=== PATIENT | female | born 1945 | race Caucasian/White ===

== ENCOUNTER 2021-03-08 10:38 | Observation (INO) | payer OTHER ==
--- OUTSIDE RECORDS SUMMARY | 2021-03-08 10:41 | XMS REPORT | Continuity of Care Document ---
:1945 Author Organization [facility] t Address [address] [place] [address] Care Team Providers Name Role Phone Tresa Morris MD Attending Clinician Alexandra TRUJILLO Attending Clinician Tino BRAVO, K.H. Attending Clinician 2, Lab Attending Clinician Unavailable Doctor Unassigned, Name Attending Clinician Unavailable Irma BRAVO Admitting Clinician Problems This patient has no known problems. Allergies, Adverse Reactions, Alerts This patient has no known allergies or adverse reactions. Medications This patient has no known medications. Procedures This patient has no known procedures. Encounters Start End Encounter Admission Attending Care Care Encounter Source Date/Time Date/Time Type Type Clinicians Facility Department ID 2021-03-06 2021-03-07 [facility] Stacy Morrisnaif [facility] [id number] 19:57:00 00:58:00 Encounter Chrystal Morris [place] [id number] [place] [id number] [place] [id number] 2021-03-07 2021-03-07 Telephone Tino [facility] [id number] 00:00:00 00:00:00 Send[place] Rhonda Glover [id number] [place] [id number] [facility] [phone] [address] 2020-11-22 2020-11-22 Telephone [facility] [id number] 00:00:00 00:00:00 Balwinder Glover [id number] [place] [id number] Profess[place] [phone] nal 059 [facility] 2020-11-14 2020-11-14 Boiler Water Tester 2, Adc Lab [facility] [id number] 09:38:37 09:53:37 Visit [place] [id number] [place] [id number] Professio [phone] formerly [facility] 353 [facility] 2020-09-13 2020-09-13 [facility] [id number] 00:00:00 00:00:00 Balwinder Glover [id number] [place] [id number] Profess[facility] [phone] [facility] 059 [facility] 2020-09-10 2020-09-10 Orders Doctor CHING [id number] 00:00:00 00:00:00 Only Unassigned, MIKEL [id number] Bruce [facility] [id number] [facility] 2020-09-06 2020-09-06 Office [facility] [id number] 10:12:42 11:36:12 Visit Balwinder Glover [id number] [place] [id number] [facility] [phone] [address] Results This patient has no known results.
[2021-03-08 11:58] LABS: Arterial Blood Carboxyhemoglob 2.2 % (0-1.5); Blood Gas Oxyhemoglobin 91.1 % (94-97)
--- NOTE | 2021-03-08 12:24 | RAD REPORT ---
EXAM DESCRIPTION: [place] Single View03/08/2021 11:45 am CLINICAL HISTORY: Cough COMPARISON: 2017 FINDINGS: 3.4 centimeter opacity mid to lower left lung. Main lungs appear clear of acute infiltrate. Heart is normal size. Lungs are hyperaerated IMPRESSION: 3.4 centimeter opacity mid to lower left lung may represent pneumonia or mass. CT chest is recommended
[2021-03-08 12:34] LABS: Urine Blood Negative (Negative); Urine Glucose Negative (Negative); Urine Protein Negative (Negative)
--- NOTE | 2021-03-08 12:35 | ER ---
Nurse's Notes [facility] Name: Sarah Wu Age: 75 yrs Sex: Female : 1945 Arrival Date: 03/08/2021 Time: 10:[address] Private MD: Diagnosis: Pneumonia, unspecified organism;COPD/ Chronic obstructive pulmonary disease with (acute) exacerbation;Tobacco abuse counseling;Tobacco use;Hypoxemia Presentation: 03/08 10:44 Chief complaint: Patient states: about 5 or 6 days ago i started feeling bad. i got tw2 tested twice for Covid twice and both were negative at [facility], they said i got bronchitis. i called dr. cantor and told him what they found and he said come into my office today. so i got to his office and he sent me here. Coronavirus screen: congestion, cough unrelated to allergies, fever, runny nose, Client presents with at least one sign or symptom that may indicate coronavirus-19. Standard/surgical mask placed on the client. Provider contacted for isolation considerations. Ebola Screen: Patient denies travel to an Ebola-affected area in the 21 days before illness onset. Initial Sepsis Screen: Does the patient meet any 2 criteria? No. Patient's initial sepsis screen is negative. Does the patient have a suspected source of infection? No. Patient's initial sepsis screen is negative. Risk Assessment: Do you want to hurt yourself or someone else? Patient reports no desire to harm self or others. Onset of symptoms was March 08, 2021. 10:44 Method Of Arrival: Wheelchair tw2 10:44 Acuity: PATSY 3 tw2 Triage Assessment: 10:49 General: Appears in no apparent distress. slender, well groomed, Behavior is calm, tw2 cooperative, appropriate for age. Pain: Denies pain. Respiratory: Reports shortness of breath at rest on exertion. Historical: - Allergies: 10:49 Latex, Natural Rubber; tw2 10:49 amlodipine; tw2 - Home Meds: 10:49 metformin 500 mg Oral tab 1 tab 2 times per day [Active]; Glipizide Oral [Active]; tw2 metoprolol tartrate 25 mg Oral tab 1 tab once daily [Active]; Lisinopril Oral [Active]; rosuvastatin oral [Active]; aspirin 81 mg Oral chew 1 tab once daily [Active]; - PMHx: 10:49 Diabetes mellitus; hypertension; hyperlipidemia; breast cancer; heart attack; tw2 - PSHx: 10:49 Cholecystectomy; lymphectomy, right breast; cardiac stents; tw2 - Immunization history:: Client reports receiving the 2nd dose of the Covid vaccine. - Social history:: Smoking status: Patient reports the use of cigarette tobacco products, smokes one pack cigarettes per day. - Family history:: not pertinent. Screenin:53 Abuse screen: Denies threats or abuse. Denies injuries from another. Nutritional zb screening: No deficits noted. Tuberculosis screening: No symptoms or risk factors identified. Fall Risk None identified. Assessment: 12:51 General: Appears in no apparent distress. comfortable, Behavior is cooperative, Reports zb fever for 2-3 days, feeling ill for > 3 days, fatigue for 2-3 days. Pain: Denies pain. Neuro: Level of Consciousness is awake, alert, obeys commands, Oriented to person, place, time, situation. Cardiovascular: Capillary refill < 3 seconds in bilateral Patient's skin is warm and dry. Respiratory: Reports shortness of breath at rest cough that is productive, hacking, persistent Airway is patent Respiratory effort is even, unlabored, Respiratory pattern is regular, symmetrical, Breath sounds are diminished bilaterally. the patient has mild shortness of breath. GI: Abdomen is flat, Bowel sounds present X 4 quads. Reports diarrhea. Derm: Skin is intact, is healthy with good turgor, Skin is normal, Skin temperature is warm. Musculoskeletal: Range of motion: intact in all extremities. 13:45 Reassessment: Patient appears in no apparent distress at this time. Patient and/or zb family updated on plan of care and expected duration. Pain level reassessed. Patient is alert, oriented x 3, equal unlabored respirations, skin warm/dry/pink. 14:50 Reassessment: Patient appears in no apparent distress at this time. Patient and/or zb family updated on plan of care and expected duration. Pain level reassessed. Patient is alert, oriented x 3, equal unlabored respirations, skin warm/dry/pink. 15:55 Reassessment: Patient appears in no apparent distress at this time. Patient and/or zb family updated on plan of care and expected duration. Pain level reassessed. Patient is alert, oriented x 3, equal unlabored respirations, skin warm/dry/pink. IV medication infusing. 17:30 Reassessment: Patient appears in no apparent distress at this time. Patient and/or zb family updated on plan of care and expected duration. Pain level reassessed. Patient is alert, oriented x 3, equal unlabored respirations, skin warm/dry/pink. 18:46 Reassessment: Patient appears in no apparent distress at this time. Patient and/or zb family updated on plan of care and expected duration. Pain level reassessed. Patient is alert, oriented x 3, equal unlabored respirations, skin warm/dry/pink. Vital Signs: 10:44 BP 130 / 61; Pulse 92; Resp 20; Temp 98.5(TE); Pulse Ox 92% on R/A; Weight 63.5 kg (R); tw2 Height 5 ft. 7 in. (170.18 cm); 14:30 BP 144 / 55; Pulse 85; Resp 16; Pulse Ox 95% on R/A; zb 15:30 BP 149 / 82; Pulse 96; Resp 16; Pulse Ox 96% on R/A; zb 17:48 BP 151 / 69; Pulse 100; Resp 20; Pulse Ox 95% 2 lpm ; zb 18:43 BP 145 / 64; Pulse 99; Resp 20; Pulse Ox 94% on 2 lpm NC; zb 20:00 BP 142 / 68; Pulse 98; Resp 19; Pulse Ox 93% 2 lpm ; zb 10:44 Body Mass Index 21.93 (63.50 kg, 170.18 cm) tw2 10:44 pt placed on 2L via NC at this time. 96% tw2 ED Course: 10:41 Patient arrived in ED. ds1 10:49 Triage completed. tw2 10:54 Arm band placed on. tw2 11:05 Gurmeet Wright MD is Attending Physician. ethan 11:45 XRAY Chest (1 view) In Process Unspecified. EDMS 12:03 Renee Barrett RN is Primary Nurse. zb 12:31 Epifanio Rosado MD is Hospitalizing Provider. ethan 12:53 Patient has correct armband on for positive identification. teletypesetter monitor on. Door zb closed. Noise minimized. 12:54 Inserted saline lock: 20 gauge in left hand, using aseptic technique. Blood collected. zb 15:00 Inserted saline lock: 20 gauge in left forearm, using aseptic technique. [facility] 20:17 No provider procedures requiring assistance completed. Patient admitted, IV remains in zb place. Administered Medications: 12:51 Drug: SOLU-Medrol (methylPrednisoLONE) 125 mg Route: IVP; Site: left hand; zb 16:49 Follow up: Response: Marked relief of symptoms zb 12:51 Drug: Rocephin (cefTRIAXone) 1 grams Route: IV; Rate: per protocol; Site: left hand; zb 16:49 Follow up: Response: No adverse reaction; IV Status: Completed infusion; IV Intake: 10mlzb 12:51 Drug: Pepcid (famotidine) 20 mg Route: IVP; Site: left hand; zb 16:49 Follow up: Response: No adverse reaction; Marked relief of symptoms zb 12:55 Drug: Xopenex (levalbuterol) 3.75 mg Route: Inhalation; zb 12:55 Drug: AtroVENT (ipratropium) Aerosol 0.5 mg Route: Inhalation; zb 14:23 Drug: Zithromax (azithromycin) 500 mg Route: IVPB; Infused Over: 1 hrs; Site: left hand;zb 16:49 Follow up: Response: No change in condition; IV Status: Completed infusion; IV Intake: zb 250ml Intake: 16:49 IV: 250ml; Total: 250ml. zb 16:49 IV: 10ml; Total: 260ml. zb Outcome: 12:34 Decision to Hospitalize by Provider. [facility] 20:17 Condition: stable 20:17 Instructed on the need for transfer, Demonstrated understanding of follow-up care. 20:18 Admitted to Med/surg accompanied by tech, room 209, with oxygen, with chart, Report zb called to DIONI Renee 20:19 Patient left the ED. zb Signatures: Dispatcher [employer] EDGurmeet Donohue MD MD cha Sanford, Demi ds1 Francisca Haile RN RN tw2 Angélica Matthews 3 Renee Barrett RN RN zb Corrections: (The following items were deleted from the chart) 10:53 10:49 Allergies: Amitriptyline; tw2 tw2 10:53 10:49 PMHx: Hyperthyroidism; tw2 tw2 10:54 10:44 Chief complaint: Patient states: about 5 or 6 days ago i started feeling bad. i tw2 got tested twice for Covid twice and both were negative. tw2 15:56 15:50 BP 144 / 55; Pulse 85bpm; Resp 16bpm; Pulse Ox 95% RA; zb zb 20:18 20:17 Discharged to home via wheelchair, zb zb
--- NOTE | 2021-03-08 12:35 | EDPHYS ---
Physician Documentation [facility] Name: Sarah Wu Age: 75 yrs Sex: Female : 1945 Arrival Date: 03/08/2021 Time: 10:[address] Private MD: Gurmeet Martinez HPI: 03/08 12:27 This 75 yrs old Female presents to ER via Wheelchair with complaints of Sent ethan per Katte, Low O2. 12:27 The patient has shortness of breath at rest, with light activity. Onset: The ethan symptoms/episode began/occurred 2 day(s) ago. Duration: The symptoms are continuous, and are steadily getting worse. The patient's shortness of breath is aggravated by coughing, is alleviated by nothing. The patient or guardian reports cough, difficulty breathing. Modifying factors: The symptoms are alleviated by remaining still, the symptoms are aggravated by activity. Associated signs and symptoms: Pertinent positives: non-productive cough. Severity of symptoms: At their worst the symptoms were mild in the emergency department the symptoms are unchanged. Associated signs and symptoms: Pertinent positives: chest pain, rhinorrhea. Historical: - Allergies: 10:49 Latex, Natural Rubber; tw2 10:49 amlodipine; tw2 - Home Meds: 10:49 metformin 500 mg Oral tab 1 tab 2 times per day [Active]; Glipizide Oral [Active]; tw2 metoprolol tartrate 25 mg Oral tab 1 tab once daily [Active]; Lisinopril Oral [Active]; rosuvastatin oral [Active]; aspirin 81 mg Oral chew 1 tab once daily [Active]; - PMHx: 10:49 Diabetes mellitus; hypertension; hyperlipidemia; breast cancer; heart attack; tw2 - PSHx: 10:49 Cholecystectomy; lymphectomy, right breast; cardiac stents; tw2 - Immunization history:: Client reports receiving the 2nd dose of the Covid vaccine. - Social history:: Smoking status: Patient reports the use of cigarette tobacco products, smokes one pack cigarettes per day. - Family history:: not pertinent. ROS: 12:27 Constitutional: Negative for fever, chills, and weight loss, Eyes: Negative for injury, ethan pain, redness, and discharge, ENT: Negative for injury, pain, and discharge, Neck: Negative for injury, pain, and swelling, Cardiovascular: Negative for chest pain, palpitations, and edema, Abdomen/GI: Negative for abdominal pain, nausea, vomiting, diarrhea, and constipation, Back: Negative for injury and pain, : Negative for injury, bleeding, discharge, and swelling, MS/Extremity: Negative for injury and deformity, Skin: Negative for injury, rash, and discoloration, Neuro: Negative for headache, weakness, numbness, tingling, and seizure, Psych: Negative for depression, anxiety, suicide ideation, homicidal ideation, and hallucinations, Allergy/Immunology: Negative for hives, rash, and allergies, Endocrine: Negative for neck swelling, polydipsia, polyuria, polyphagia, and marked weight changes, Hematologic/Lymphatic: Negative for swollen nodes, abnormal bleeding, and unusual bruising. 12:27 Respiratory: Positive for cough, shortness of breath, wheezing, expiratory. Exam: 12:27 Constitutional: This is a well developed, well nourished patient who is awake, alert, ethan and in no acute distress. Head/Face: Normocephalic, atraumatic. Eyes: Pupils equal round and reactive to light, extra-ocular motions intact. Lids and lashes normal. Conjunctiva and sclera are non-icteric and not injected. Cornea within normal limits. Periorbital areas with no swelling, redness, or edema. ENT: Nares patent. No nasal discharge, no septal abnormalities noted. Tympanic membranes are normal and external auditory canals are clear. Oropharynx with no redness, swelling, or masses, exudates, or evidence of obstruction, uvula midline. Mucous membranes moist. Neck: Trachea midline, no thyromegaly or masses palpated, and no cervical lymphadenopathy. Supple, full range of motion without nuchal rigidity, or vertebral point tenderness. No Meningismus. Chest/axilla: Normal chest wall appearance and motion. Nontender with no deformity. No lesions are appreciated. Cardiovascular: Regular rate and rhythm with a normal S1 and S2. No gallops, murmurs, or rubs. Normal PMI, no JVD. No pulse deficits. Abdomen/GI: Soft, non-tender, with normal bowel sounds. No distension or tympany. No guarding or rebound. No evidence of tenderness throughout. Back: No spinal tenderness. No costovertebral tenderness. Full range of motion. Female : Normal external genitalia. Skin: Warm, dry with normal turgor. Normal color with no rashes, no lesions, and no evidence of cellulitis. MS/ Extremity: Pulses equal, no cyanosis. Neurovascular intact. Full, normal range of motion. Neuro: Awake and alert, GCS 15, oriented to person, place, time, and situation. Cranial nerves II-XII grossly intact. Motor strength 5/5 in all extremities. Sensory grossly intact. Cerebellar exam normal. Normal gait. Psych: Awake, alert, with orientation to person, place and time. Behavior, mood, and affect are within normal limits. 12:27 Respiratory: the patient does not display signs of respiratory distress, Respirations: labored breathing, is not present, Breath sounds: decreased breath sounds, that are moderate, rhonchi, that are mild, are scattered, stridor, is not appreciated, wheezing: expiratory is scattered. 12:29 Musculoskeletal/extremity: DVT Exam: No signs of deep vein thrombosis. no pain, no ethan swelling, no tenderness, negative Homans' sign noted on exam, no appreciated bluish discoloration, no erythema, no increased warmth. 13:19 ECG was reviewed by the Attending Physician. [facility] Vital Signs: 10:44 BP 130 / 61; Pulse 92; Resp 20; Temp 98.5(TE); Pulse Ox 92% on R/A; Weight 63.5 kg (R); tw2 Height 5 ft. 7 in. (170.18 cm); 14:30 BP 144 / 55; Pulse 85; Resp 16; Pulse Ox 95% on R/A; zb 15:30 BP 149 / 82; Pulse 96; Resp 16; Pulse Ox 96% on R/A; zb 17:48 BP 151 / 69; Pulse 100; Resp 20; Pulse Ox 95% 2 lpm ; zb 18:43 BP 145 / 64; Pulse 99; Resp 20; Pulse Ox 94% on 2 lpm NC; zb 20:00 BP 142 / 68; Pulse 98; Resp 19; Pulse Ox 93% 2 lpm ; zb 10:44 Body Mass Index 21.93 (63.50 kg, 170.18 cm) tw2 10:44 pt placed on 2L via NC at this time. 96% tw2 MDM: 11:09 Patient medically screened. [facility] 12:29 Differential diagnosis: Anemia asthma, Bronchitis CHF exacerbation, Chronic Obstructive ethan Pulmonary Disease bronchitis, flu, URI. Antibiotic administration: Rocephin and Zithromax given. The patient's Wells Deep Vein Thrombosis Score was calculated as follows: Total Score: 0-2 Pts- Low Risk. The patient's pulmonary embolism risk score was calculated as follows: Total Score: 0-2 points. This patient was found to be at low risk for a pulmonary embolism by using the Well's assessment criteria. Immunization status: Pneumococcal vaccine: Influenza vaccine: Data reviewed: vital signs, nurses notes, lab test result(s), EKG, radiologic studies, plain films. Data interpreted: court recording monitor: rate is 92 beats/min, rhythm is regular, Pulse oximetry: on room air. Test interpretation: by ED physician or midlevel provider: ECG, plain radiologic studies. Counseling: I had a detailed discussion with the patient and/or guardian regarding: the historical points, exam findings, and any diagnostic results supporting the discharge/admit diagnosis, lab results, radiology results, the need for further work-up and treatment in the hospital. 03/08 11:08 Order name: Basic Metabolic Panel [facility] 03/08 11:08 Order name: CBC with Diff; Complete Time: 16:04 [facility] 03/08 11:08 Order name: LFT's [facility] 03/08 11:08 Order name: Magnesium [facility] 03/08 11:08 Order name: NT PRO-BNP [facility] 03/08 11:08 Order name: PT-INR; Complete Time: 16:04 [facility] 03/08 11:08 Order name: Troponin (emerg Dept Use Only); Complete Time: 16:04 [facility] 03/08 11:08 Order name: Blood Culture Adult (2) [facility] 03/08 11:08 Order name: COVID-19 : Document "Date of Symptom Onset" if Symptomatic. [facility] 03/08 11:08 Order name: ABG; Complete Time: 12:02 [facility] 03/08 11:09 Order name: Basic Metabolic Panel; Complete Time: 16:04 [facility] 03/08 11:09 Order name: Liver (Hepatic) Function; Complete Time: 16:04 [facility] 03/08 11:09 Order name: Magnesium; Complete Time: 16:04 [facility] 03/08 11:09 Order name: NT PRO-BNP; Complete Time: 16:04 [facility] 03/08 11:08 Order name: XRAY Chest (1 view); Complete Time: 12:30 [facility] 03/08 11:08 Order name: EKG; Complete Time: 11:09 [facility] 03/08 12:34 Order name: Urine Dipstick-Ancillary; Complete Time: 13:19 [facility] 03/08 14:03 Order name: Chest Angio; Complete Time: 16:04 [facility] 03/08 14:24 Order name: Heart Healthy [facility] 03/08 14:24 Order name: CBC with Automated Diff [facility] 03/08 14:24 Order name: CBC with Automated Diff [facility] 03/08 14:24 Order name: Comprehensive Metabolic Panel [facility] 03/08 14:24 Order name: Comprehensive Metabolic Panel [facility] 03/08 16:13 Order name: Diet Regular; Complete Time: 16:14 03/08 11:08 Order name: Cardiac monitoring; Complete Time: 13:02 [facility] 03/08 11:08 Order name: EKG - Nurse/Tech; Complete Time: 13:02 [facility] 03/08 11:08 Order name: IV Saline Lock; Complete Time: 12:34 [facility] 03/08 11:08 Order name: Labs collected and sent; Complete Time: 12:34 [facility] 03/08 11:08 Order name: O2 Per Protocol; Complete Time: 12:34 [facility] 03/08 11:08 Order name: O2 Sat Monitoring; Complete Time: 12:34 [facility] 03/08 13:25 Order name: Labs - recollect needed: recollect blood; Complete Time: 13:52 eb EC:19 Rate is 88 beats/min. Rhythm is regular. QRS Twain is Normal. IL interval is normal. QRS ethan interval is normal. QT interval is normal. No Q waves. T waves are Normal. No ST changes noted. Clinical impression: Normal ECG and No evidence of ischemia. Interpreted by me. Reviewed by me. Administered Medications: 12:51 Drug: SOLU-Medrol (methylPrednisoLONE) 125 mg Route: IVP; Site: left hand; zb 16:49 Follow up: Response: Marked relief of symptoms zb 12:51 Drug: Rocephin (cefTRIAXone) 1 grams Route: IV; Rate: per protocol; Site: left hand; zb 16:49 Follow up: Response: No adverse reaction; IV Status: Completed infusion; IV Intake: 10mlzb 12:51 Drug: Pepcid (famotidine) 20 mg Route: IVP; Site: left hand; zb 16:49 Follow up: Response: No adverse reaction; Marked relief of symptoms zb 12:55 Drug: Xopenex (levalbuterol) 3.75 mg Route: Inhalation; zb 12:55 Drug: AtroVENT (ipratropium) Aerosol 0.5 mg Route: Inhalation; zb 14:23 Drug: Zithromax (azithromycin) 500 mg Route: IVPB; Infused Over: 1 hrs; Site: left hand;zb 16:49 Follow up: Response: No change in condition; IV Status: Completed infusion; IV Intake: zb 250ml Disposition Summary: 03/08/21 12:34 Hospitalization Ordered Hospitalization Status: Inpatient Admission ethan Provider: Epifanio Rosado cha Location: Telemetry/MedSurg (Inpatient) ethan Condition: Fair ethan Problem: new ethan Symptoms: have improved ethan Bed/Room Type: Standard ethan Room Assignment: 209(03/08/21 18:28) eb Diagnosis - Pneumonia, unspecified organism ethan - COPD/ Chronic obstructive pulmonary disease with (acute) exacerbation ethan - Tobacco abuse counseling ethan - Tobacco use ethan - Hypoxemia ethan Forms: - Medication Reconciliation Form ethan - SBAR form ethan Signatures: Dispatcher [employer] EDGurmeet Donohue MD MD cha Wise, Tara RN RN tw2 Laurie Hernandez Zipporah, RN RN zb Corrections: (The following items were deleted from the chart) 10:53 10:49 Allergies: Amitriptyline; tw 10:53 10:49 PMHx: Hyperthyroidism; tw2 18:28 12:34 ethan eb
[2021-03-08] MEDS ORDERED: LEVALBUTEROL 1.25 MG/3 ML NEB ONE (13:01)
[2021-03-08] MEDS ORDERED: IPRATROPIUM BROM 0.5MG/2.5ML ONE (13:01)
[2021-03-08] MEDS ORDERED: CEFTRIAXONE/SWI 1gm 1 GM/10 ML SYR ONE ×2 (13:01→13:02)
[2021-03-08] MEDS ORDERED: FAMOTIDINE 20 MG/2 ML VIAL IV ONE (13:01)
[2021-03-08] MEDS ORDERED: METHYLPREDNISOLONE 125 MG INJ ONE (13:01)
[2021-03-08] MEDS ORDERED: AZITHROMYCIN IV 500 MG in NA CHLORIDE 0.9% 250 ML IVPB ONE (13:15)
[2021-03-08 13:25] LABS: Absolute Lymphocytes (CBC) 2.7 K/uL (0.7-4.9); Hematocrit 30.8 % (36.0-45.0); Lymphocytes % 28.3 % (15.3-44.8); MPV 8.4 fL (7.6-11.3); RBC Red Blood Cell Count 4.11 M/uL (3.86-4.86)
[2021-03-08 14:07] LABS: Protime INR 1.03
[2021-03-08 14:15] LABS: ALT/SGPT 16 U/L (12-78); AST/SGOT 17 U/L (15-37); Albumin 3.6 g/dL (3.4-5.0); Alkaline Phosphatase 72 U/L (45-117); BUN Blood Urea Nitrogen 22 mg/dL (7-18); Bicarbonate 27 mmol/L (21-32); Bilirubin Direct 0.2 mg/dL (0-0.2); Bilirubin Total 0.3 mg/dL (0.2-1.0); Glucose Level 219 mg/dL (74-106); Magnesium 1.9 mg/dL (1.8-2.4); NT PRO-BNP 255 pg/mL (<450); Potassium 3.8 mmol/L (3.5-5.1); Protein, Total 7.3 g/dL (6.4-8.2); Sodium Level 137 mmol/L (136-145); Troponin (Emerg Dept Use Only) < 0.02 ng/mL (0.0-0.045)
[2021-03-08] MEDS ORDERED: MORPHINE 2 MG/ML SYR IV PRN (14:18)
[2021-03-08] MEDS ORDERED: ONDANSETRON 4 MG/2 ML VIAL IV PRN (14:18)
[2021-03-08] MEDS ORDERED: ACETAMINOPHEN 500 MG TAB PO PRN (14:18)
[2021-03-08] MEDS ORDERED: IPRATROPIUM BROM 0.5MG/2.5ML NEB PRN (14:35)
[2021-03-08] MEDS ORDERED: ALBUTEROL 2.5 MG/3 ML NEB SOL NEB PRN (14:35)
[2021-03-08] MEDS: NA CHLORIDE 0.9% 1,000 ML IV SCH ×2 (15:00→22:46)
[2021-03-08] MEDS: Levofloxacin500mg IV 500 MG/100 ML BAG IV SCH ×2 (15:00→22:54)
--- NOTE | 2021-03-08 16:03 | RAD REPORT ---
EXAM DESCRIPTION: CT - Chest Angio - 03/08/2021 3:45 pm CLINICAL HISTORY: AMS COMPARISON: No comparisons TECHNIQUE: Dynamically enhanced 3 mm thick images of the chest were obtained during administration o f approximately 150mL Isovue 370 IV contrast. Coronal and oblique MIP reconstruction images were gene rated and reviewed. Exam utilizes a protocol to evaluate the pulmonary arterial tree. All CT scans are performed using dose optimization technique as appropriate and may include automated exposure control or mA/KV adjustment according to patient size. FINDINGS: No pulmonary emboli are identified. The aorta as imaged shows no acute or suspicious finding. No pericardial thickening or effusion. A 3.1 centimeter lobulated mass is present in the inferior aspect of the left lower lobe abutting the fissure. No air bronchogram present within this mass. There is additional soft tissue mass or lympha denopathy in the left hilum partially encircling the left mainstem bronchus, left lower lobe bronchus and the bronchus extending into the lingula. Approximately 2 centimeter area of soft tissue mass is seen in the left lateral aspect of the subcarinal region. There is questionable contralateral small l ymph node present in the hilum on the right. An 18 millimeter aortopulmonic window lymph node is pres ent. The left hilar and left lower lobe findings are much more consistent with malignancy than pneumonia. No right-side acute infiltrate or mass lesion. Mild scattered emphysema changes are present. No endob ronchial lesions seen. No chest wall masses or abnormal axillary lymphadenopathy. Postsurgical changes are present to the ri ght breast and right axilla. IMPRESSION: No pulmonary emboli identified. A 3.1 centimeter left lower lobe mass with left hilar mediastinal mass of lymphadenopathy findings. These left-side findings are more consistent with a metastatic primary lung malignancy rather than pn eumonia or metastatic breast cancer.
[2021-03-08] MEDS: PIPER/TAZO/NS 3.375gm 3.375 GM/100 ML BAG IVPB SCH ×3 (18:00→23:41)
[2021-03-08] MEDS: METHYLPREDNISOLONE 125 MG INJ IV SCH ×3 (18:00→23:02)
[2021-03-08] MEDS ORDERED: MELATONIN 5 MG TABLET PO PRN (22:29)
[2021-03-09] MEDS: PIPER/TAZO/NS 3.375gm 3.375 GM/100 ML BAG IVPB SCH ×2 (01:00→10:08)
[2021-03-09] MEDS: NA CHLORIDE 0.9% 1,000 ML IV SCH (04:20)
[2021-03-09 04:48] VITALS: BMI 21.9
[2021-03-09] MEDS: METHYLPREDNISOLONE 125 MG INJ IV SCH ×2 (07:15→11:31)
[2021-03-09 07:17] LABS: Absolute Lymphocytes (CBC) 1.1 K/uL (0.7-4.9); Basophils % 0.3 % (0-1.3); Hematocrit 27.7 % (36.0-45.0); Lymphocytes % 15.9 % (15.3-44.8); MPV 8.1 fL (7.6-11.3); RBC Red Blood Cell Count 3.73 M/uL (3.86-4.86)
[2021-03-09 07:30] LABS: Albumin 3.3 g/dL (3.4-5.0); Bilirubin Total 0.3 mg/dL (0.2-1.0); Potassium 4.4 mmol/L (3.5-5.1); Protein, Total 6.9 g/dL (6.4-8.2)
[2021-03-09 07:54] LABS: Folic Acid, (Folate) 5.7 ng/mL (3.1-17.5); Magnesium 1.9 mg/dL (1.8-2.4); Troponin I < 0.02 ng/mL (0.0-0.045)
[2021-03-09 12:30] VITALS: TEMP 98.9
[2021-03-09] MEDS: Levofloxacin500mg IV 500 MG/100 ML BAG IV SCH (14:28)
[2021-03-09] MEDS ORDERED: D50W 25 GM/50 ML SYRINGE IV PRN (15:30)
[2021-03-09] MEDS ORDERED: GLUCAGON 1 MG/VIAL IM PRN (15:30)
[2021-03-09] MEDS ORDERED: INSULIN 70/30 100 UNITS/ML SQ ONE (15:31)
[2021-03-09] MEDS ORDERED: NA CHLORIDE 0.9% 250 ML IV ONE (15:52)
[2021-03-09] MEDS ORDERED: lisinopriL 10 MG TAB PO ONE (16:08)
[2021-03-09] MEDS ORDERED: METOPROLOL TARTRATE 5 MG/5 ML INJ IV STA (16:08)
--- NOTE | 2021-03-09 16:11 | P.HP ---
Certification for Inpatient Patient admitted to: Observation With expected LOS: <2 Midnights Patient will require the following post-hospital care: None Practitioner: I am a practitioner with admitting privileges, knowledge of patient current condition, hospital course, and medical plan of care. Services: Services provided to patient in accordance with Admission requirements found in Title 42 Section 412.3 of the Code of Federal Regulations Patient History Date of Service: 03/08/21 Reason for admission: Shortness of breath/hypoxemia History of Present Illness: Patient is a 75-year-old female came to the hospital with shortness of breath. Patient was seen a [place] [facility] and she was going to be transfer but she did not want a get transfer so she was discharged home. She was hypoxic when she went to see her PCP. She says she went a day without getting any medications. She came into the emergency room for further evaluation. In the emergency rooms chest x- ray revealed a mass. CT scan confirmed date 3 cm lung mass. She says she eats all this on the prior CT scan at [place] as well. She has of the follow with a librarian head that her resin maker referred her to Dr. Jiménez. She is feeling better. She is wanting to go home. She will be admitted for further evaluation. Allergies latex Allergy (Verified 12/02/16 15:36) Rash amlodipine Adverse Reaction (Verified 03/08/21 23:17) Itching/Hives/Rash Home Medications: Glipizide [Glipizide ER] 5 mg PO BID 03/05/17 Metformin ER [Glucophage ER*] 500 mg PO BID 03/05/17 Aspirin [Aspirin EC 81 MG] 81 mg PO DAILY 03/08/21 Metoprolol Tartrate 25 mg PO DAILY 03/08/21 Rosuvastatin Calcium 5 mg PO DAILY 03/08/21 lisinopriL [Lisinopril] 5 mg PO DAILY 03/08/21 Albuterol Neb [Proventil 0.083% Neb Soln] 2.5 mg NEB [id number] PRN #60 amp 03/09/21 Azithromycin Tab [Zithromax*] 250 mg PO ZPAK #1 oleksandr 03/09/21 Cefdinir [Omnicef] 300 mg PO BID #20 capsule 03/09/21 Ipratropium Neb [Atrovent*] 0.5 mg NEB [id number] PRN #60 amp 03/09/21 Melatonin 10 mg PO BEDTIME PRN PRN #30 tablet 03/09/21 Nebulizer Accessories [Aeroneb Go] 1 each MC DAILY #1 each 03/09/21 Nebulizer [Aeroneb Go Nebulizer] 1 each MC DAILY #1 each 03/09/21 predniSONE [Prednisone*] 20 mg PO BID #20 tab 03/09/21 - Past Medical/Surgical History Diabetic: Yes -: Bronchitis -: Hypertension -: Type 2 diabetes Past Surgical History: Patient denies surgical history - Family History Father Family History: Reviewed- Non-Contributory - Social History Smoking Status: Current every day smoker Alcohol use: No CD- Drugs: No Caffeine use: Yes Place of Residence: Home Review of Systems 10-point ROS is otherwise unremarkable Physical Examination - Vital Signs Temperature: 98.9 F Blood Pressure: 187/79 Pulse: 117 Respirations: 20 Pulse Ox (%): 93 - Physical Exam General: Alert, In no apparent distress, Oriented x3 HEENT: Atraumatic, Normocephalic Neck: Supple, 2+ carotid pulse no bruit, JVD not distended Respiratory: Diminished, Expiratory wheezes Cardiovascular: Regular rate/rhythm, Normal S1 S2, Systolic murmur Gastrointestinal: Normal bowel sounds, Soft and benign, Non-distended, No tenderness Musculoskeletal: No clubbing, No swelling Integumentary: No rashes Neurological: Normal gait, Normal speech, Normal strength at 5/5 x4 extr, Normal tone, Sensation intact, Cranial nerves 3-12 intact Lymphatics: No axilla or inguinal lymphadenopathy Assessment & Plan - Problems (Diagnosis) (1) Pneumonia Status: Acute (2) Acute exacerbation of chronic obstructive pulmonary disease (COPD) Status: Acute (3) Hypertension Status: Acute (4) Type 2 diabetes mellitus Status: Acute - Plan 1. Continue with IV antibiotics 2. Awaiting sputum and blood culture 3. Repeat chest x-ray 4. Will proceed with CT scan of the chest if pneumonia is not improved to evaluate for postobstructive pneumonia 5. Appreciate pulmonary consultation 6. Continue with nebs as needed 7. O2 per protocol 8. Continue with gentle hydration 9. Repeat labs including CBC and renal function in a.m. 10. GI and DVT prophylaxis Discharge Plan: Home Plan to discharge in: 24 Hours - Advance Directives Does patient have a Living Will: No Does patient have a Durable POA for Healthcare: No - Code Status/Comfort Care Code Status Assessed: Yes Comfort Measures: Palliative Care Critical Care: No Time Spent Managing PTS Care (In Minutes): 45
[2021-03-09 16:47] VITALS: O2SAT 92
[2021-03-09] MEDS ORDERED: METFORMIN ER 500 MG TAB PO SCH (17:00)
[2021-03-09] MEDS ORDERED: glipiZIDE 5 MG TAB PO SCH (17:00)
[2021-03-09] MEDS ORDERED: ROSUVASTATIN 10 MG TAB PO SCH (21:00)
[2021-03-09] MEDS ORDERED: GLIPIZIDE S.A. 5 MG TAB PO SCH (21:00)
[2021-03-10] MEDS ORDERED: METFORMIN ER 500 MG TAB PO SCH (08:00)
[2021-03-10] MEDS ORDERED: METOPROLOL TAR 25 MG TAB PO SCH (09:00)
[2021-03-10] MEDS ORDERED: ASPIRIN EC 81 MG TAB PO SCH (09:00)
[2021-03-10] MEDS ORDERED: lisinopriL 5 MG TAB PO SCH (21:00)
[2021-03-14 21:39] VITALS: BP 187/79
--- NOTE | 2021-03-14 21:40 | P.DS ---
Discharge Date: 03/09/21 Disposition: ROUTINE DISCHARGE Discharge Condition: GOOD Reason for Admission: Shortness of breath/hypoxemia Consultations: Pulmonary - Problems (1) Pneumonia Status: Acute (2) Acute exacerbation of chronic obstructive pulmonary disease (COPD) Status: Acute (3) Hypertension Status: Acute (4) Type 2 diabetes mellitus Status: Acute Brief History of Present Illness: Patient is a 75-year-old female came to the hospital with shortness of breath. Patient was seen a [place] MB and she was going to be transfer but she did not want a get transfer so she was discharged home. She was hypoxic when she went to see her PCP. She says she went a day without getting any medications. She came into the emergency room for further evaluation. In the emergency rooms chest x- ray revealed a mass. CT scan confirmed date 3 cm lung mass. She says she eats all this on the prior CT scan at [place] as well. She has of the follow with a patient biller that her electric lift truck driver referred her to Dr. Jiménez. She is feeling better. She is wanting to go home. She will be admitted for further evaluation. Hospital Course: Patient continues to do well. Patient's respiratory status has improved. Patient will follow with pulmonary in November 17 and her electric lift truck driver as an outpatient per her request. At this time, patient is stable for discharge and outpatient followup. Vital Signs/Physical Exam: Temp Pulse Resp BP Pulse Ox 98.9 F 117 H 20 187/79 H 93 03/14/21 21:39 03/14/21 21:39 03/14/21 21:39 03/14/21 21:39 03/14/21 21:39 General: Alert, In no apparent distress, Oriented x3 Laboratory Data at Discharge: WBC 6.60 K/uL (4.3-10.9) D 03/09/21 06:57 Hgb 8.9 g/dL (12.0-15.0) L 03/09/21 06:57 Hct 27.7 % (36.0-45.0) L 03/09/21 06:57 Plt Count 336 K/uL (152-406) 03/09/21 06:57 PT 11.9 SECONDS (9.5-12.5) 03/08/21 13:47 INR 1.03 03/08/21 13:47 Sodium 138 mmol/L (136-145) 03/09/21 06:57 Potassium 4.4 mmol/L (3.5-5.1) 03/09/21 06:57 BUN 22 mg/dL (7-18) H 03/09/21 06:57 Creatinine 0.66 mg/dL (0.55-1.3) 03/09/21 06:57 Glucose 193 mg/dL (74-106) H 03/09/21 06:57 Magnesium 1.9 mg/dL (1.8-2.4) 03/09/21 06:57 Total Bilirubin 0.3 mg/dL (0.2-1.0) 03/09/21 06:57 AST 9 U/L (15-37) L 03/09/21 06:57 ALT 16 U/L (12-78) 03/09/21 06:57 Alkaline Phosphatase 66 U/L (45-117) 03/09/21 06:57 Troponin I < 0.02 ng/mL (0.0-0.045) 03/09/21 06:57 Home Medications: Glipizide [Glipizide ER] 5 mg PO BID 03/05/17 Metformin ER [Glucophage ER*] 500 mg PO BID 03/05/17 Aspirin [Aspirin EC 81 MG] 81 mg PO DAILY 03/08/21 Metoprolol Tartrate 25 mg PO DAILY 03/08/21 Rosuvastatin Calcium 5 mg PO DAILY 03/08/21 lisinopriL [Lisinopril] 5 mg PO DAILY 03/08/21 Albuterol Neb [Proventil 0.083% Neb Soln] 2.5 mg NEB [id number] PRN #60 amp Azithromycin Tab [Zithromax*] 250 mg PO ZPAK #1 oleksandr 03/09/21 Cefdinir [Omnicef] 300 mg PO BID #20 capsule 03/09/21 Ipratropium Neb [Atrovent*] 0.5 mg NEB [id number] PRN #60 amp 03/09/21 Melatonin 10 mg PO BEDTIME PRN PRN #30 tablet 03/09/21 Nebulizer Accessories [Aeroneb Go] 1 each MC DAILY #1 each 03/09/21 Nebulizer [Aeroneb Go Nebulizer] 1 each MC DAILY #1 each 03/09/21 predniSONE [Prednisone*] 20 mg PO BID #20 tab 03/09/21 New Medications: Nebulizer Accessories [Aeroneb Go] 1 each MC DAILY #1 each Nebulizer [Aeroneb Go Nebulizer] 1 each MC DAILY #1 each Ipratropium Neb [Atrovent*] 0.5 mg NEB [id number] PRN #60 amp PRN Reason: dyspnea Melatonin 10 mg PO BEDTIME PRN PRN #30 tablet PRN Reason: sleep Cefdinir [Omnicef] 300 mg PO BID #20 capsule predniSONE [Prednisone*] 20 mg PO BID #20 tab Albuterol Neb [Proventil 0.083% Neb Soln] 2.5 mg NEB [id number] PRN #60 amp PRN Reason: dyspnea Azithromycin Tab [Zithromax*] 250 mg PO ZPAK #1 oleksandr Physician Discharge Instructions: OK TO DC IV AND DC HOME FOLLOW-UP WITH PRIMARY CARE PROVIDER IN 1-2 WEEKS FOLLOW-UP WITH PULMONARY IN 1-2 WEEKS RETURN TO THE ER IF SYMPTOMS WORSENS CALL or TEXT DR. WILKERSON AT [phone] IF ANY QUESTIONS REGARDING HOSPITAL STAY. PLEASE CALL THE FLOOR AT [phone] IF ANY MEDICATION OR NURSING QUESTIONS. Diet: AHA Activity: Fall precautions Followup: Armando Mcmahon MD [ACTIVE - CAN ADMIT] - Alberto Flaherty MD [Primary Care Provider] - Time spent managing pt's care (in minutes): 35
== END 2021-03-09 15:20 | disposition home or self-care (01) ==
LOC: ER 10:38 → INTOOBSV 14:18 → ERHOLD 14:18 → 2ND 19:46
PROVIDERS: ADMIT Hospitalist; ATTEND Hospitalist
DX: J18.9 Pneumonia, unspecified organism (principal); J44.1 Chronic obstructive pulmonary disease with (acute) exacerbation; R09.02 Hypoxemia; R91.8 Other nonspecific abnormal finding of lung field; E11.9 Type 2 diabetes mellitus without complications; I10 Essential (primary) hypertension; E78.5 Hyperlipidemia, unspecified; I25.2 Old myocardial infarction; F17.210 Nicotine dependence, cigarettes, uncomplicated; Z79.82 Long term (current) use of aspirin; Z88.8 Allergy status to other drugs, medicaments and biological substances; Z91.040 Latex allergy status; Z85.3 Personal history of malignant neoplasm of breast; Z95.5 Presence of coronary angioplasty implant and graft; Z90.49 Acquired absence of other specified parts of digestive tract
CPT/HCPCS: 96365; 93005; 87040 ×2; 85025 ×2; 80048; 36415; 83735 ×2; 85610; 82947 ×4; 80076; 81003; 84484 ×2; 82746; 82607; 83540; 80053; 84145; 83880; 71275; 71045; 94640; 82805; 96375; 99285; 96366; Q9967; J0456; J2543; J0696 ×2; J7050 ×2; J7030; J2930 ×4; G0378 ×3; J1815